=== PATIENT | female | born 1995 | race Two or more races ===

== ENCOUNTER 2017-01-06 10:04 | Emergency (ER) | payer MEDICAID ==
[~2017-01-06] VITALS: Ht 147.3 cm; Wt 71.2 kg
[~2017-01-06 10:04] MED LIST: DOCU-30 PO; HYDR1TAB12 PO; HYDR200T PO; IBUP-1222 PO; NONE PER PT; NORG1TAB6 PO; OXYC-302 PO; PREN1TAB52 PO
[2017-01-06] MEDS ORDERED: SODIUM CHLORIDE FLUSH 10ML SYR IVF ONE (11:00)
[2017-01-06] MEDS ORDERED: SODIUM CHLORIDE 0.9% 1,000ML IVBOLUS ONE (11:00)
[2017-01-06] MEDS ORDERED: ONDANSETRON 2MG/ML, 2ML IVPush ONE (11:00)
[2017-01-06] MEDS ORDERED: ONDANSETRON 2MG/ML, 2ML ONE (11:18)
[2017-01-06] MEDS ORDERED: PHENAZOPYRIDINE 200 MG TABLET ONE (11:18)
[2017-01-06] MEDS: PHENAZOPYRIDINE 200 MG TABLET PO ONE ×2 (11:31→13:25)
[2017-01-06 11:37] LABS: HEMOGLOBIN 13.7 g/dL (11.7-16.4)
[2017-01-06] MEDS ORDERED: CEFD300C2 PO (11:37)
[2017-01-06] MEDS ORDERED: MORPHINE SULFATE 4 MG/ML, 1ML ONE ×2 (11:40→12:46)
[2017-01-06 11:46] LABS: BLOOD UREA NITROGEN 11 mg/dL (7-18)
[2017-01-06] MEDS ORDERED: MORPHINE SULFATE 4 MG/ML, 1ML IVPush PRN (12:00)
[2017-01-06 12:05] LABS: PATH.CAST-FLAG NOT PRESENT; SPERM-FLAG NOT PRESENT; SRC-FLAG NOT PRESENT; XTAL-FLAG NOT PRESENT; YLC-FLAG NOT PRESENT
[2017-01-06] MEDS ORDERED: OMNIPAQUE 350 MG/ML, 100ML BOTTLE ONE (12:25)
[2017-01-06] MEDS ORDERED: CEFTRIAXONE PMX 1GM/50ML 50 ML IV ONE (13:00)
[2017-01-06] MEDS ORDERED: SULFAMETH./TRIMETHOPRIM DS 800MG/160MG TABLET ONE (13:03)
[2017-01-06 13:27] VITALS: BP 100/65
[2017-01-06] MEDS ORDERED: SULFAMETH./TRIMETHOPRIM DS 800MG/160MG TABLET PO ONE (13:30)
== END 2017-01-06 13:50 | disposition home or self-care (01) ==
LOC: ED 13:06
DX: N30.90 Cystitis, unspecified without hematuria (principal); L93.0 Discoid lupus erythematosus; F17.200 Nicotine dependence, unspecified, uncomplicated
CPT/HCPCS: 36415; 74177; 80048; 81001; 82040; 84703; 85025; 87086; 96361; 96374; 96375; 99285; J2405; J7030; Q9967; 87077

== ENCOUNTER 2017-02-11 17:34 | Emergency (ER) | payer MEDICAID ==
[~2017-02-11] VITALS: Ht 177.8 cm; Wt 70.5 kg
[~2017-02-11 17:34] MED LIST changes: +CEFD300C2 PO
[2017-02-11 17:45] VITALS: BP 115/74
[2017-02-11] MEDS ORDERED: HYDROmorphone 1 MG/ML, 1ML IVPush PRN (18:00)
[2017-02-11] MEDS ORDERED: SODIUM CHLORIDE FLUSH 10ML SYR IVF ONE (18:00)
[2017-02-11] MEDS ORDERED: SODIUM CHLORIDE 0.9% 1,000ML IV ONE (18:00)
[2017-02-11] MEDS ORDERED: ONDANSETRON 2MG/ML, 2ML IVPush ONE (18:00)
[2017-02-11 18:28] LABS: ASPARTATE AMINO TRANSFERASE 26 U/L (15-37); BLOOD UREA NITROGEN 12 mg/dL (7-18)
[2017-02-11] MEDS ORDERED: KETOROLAC 30 MG/1 ML IVPush ONE (18:30)
[2017-02-11] MEDS ORDERED: ONDANSETRON 2MG/ML, 2ML ONE (18:44)
[2017-02-11] MEDS ORDERED: KETOROLAC 30 MG/1 ML ONE (18:44)
[2017-02-11 19:04] LABS: PATH.CAST-FLAG NOT PRESENT; SPERM-FLAG NOT PRESENT; SRC-FLAG NOT PRESENT; XTAL-FLAG NOT PRESENT; YLC-FLAG NOT PRESENT
[2017-02-11] MEDS ORDERED: CEFTRIAXONE PMX 1GM/50ML 50 ML ONE (19:42)
[2017-02-11] MEDS ORDERED: CEFTRIAXONE 1,000 MG IM ONE (20:00)
== END 2017-02-11 20:54 | disposition home or self-care (01) ==
LOC: ED 20:48
DX: N30.00 Acute cystitis without hematuria (principal); N12 Tubulo-interstitial nephritis, not specified as acute or chronic; F17.200 Nicotine dependence, unspecified, uncomplicated; Z98.890 Other specified postprocedural states
CPT/HCPCS: 36415; 80053; 81001; 84703; 85025; 87086; 96361; 96372; 96374; 96375; 99285; J0696; J1885; J2405; J7030

== ENCOUNTER 2017-02-19 12:04 | Emergency (ER) | payer MEDICAID ==
[~2017-02-19] VITALS: Ht 149.9 cm; Wt 72.0 kg
[~2017-02-19 12:04] MED LIST changes: -CEFD300C2 PO; +CEFD300C37 PO
[2017-02-19] MEDS ORDERED: SODIUM CHLORIDE FLUSH 10ML SYR IVF ONE (13:00)
[2017-02-19] MEDS ORDERED: MORPHINE SULFATE 4 MG/ML, 1ML IVPush PRN (13:00)
[2017-02-19] MEDS ORDERED: ONDANSETRON 2MG/ML, 2ML IVPush ONE (13:00)
[2017-02-19] MEDS ORDERED: SODIUM CHLORIDE 0.9% 1,000ML IVBOLUS ONE (13:00)
[2017-02-19] MEDS ORDERED: MORPHINE SULFATE 4 MG/ML, 1ML ONE (13:10)
[2017-02-19] MEDS ORDERED: ONDANSETRON 2MG/ML, 2ML ONE (13:10)
[2017-02-19 13:26] LABS: BLOOD UREA NITROGEN 15 mg/dL (7-18)
[2017-02-19 14:00] VITALS: BP 104/72
== END 2017-02-19 14:40 | disposition home or self-care (01) ==
LOC: ED 13:52
DX: N93.8 Other specified abnormal uterine and vaginal bleeding (principal); M32.9 Systemic lupus erythematosus, unspecified; R10.31 Right lower quadrant pain; R10.32 Left lower quadrant pain
CPT/HCPCS: 36415; 76830; 80048; 81001; 82040; 84703; 85025; 87086; 96361; 96374; 96375; 99285; J2405; J7030

== ENCOUNTER 2017-02-23 01:00 | Emergency (ER) | payer MEDICAID ==
[~2017-02-23] VITALS: Ht 149.9 cm; Wt 71.7 kg
[2017-02-23 02:28] LABS: ASPARTATE AMINO TRANSFERASE 24 U/L (15-37); BLOOD UREA NITROGEN 12 mg/dL (7-18)
[2017-02-23] MEDS ORDERED: KETOROLAC 30 MG/1 ML IM ONE (03:30)
[2017-02-23] MEDS ORDERED: KETOROLAC 30 MG/1 ML ONE (03:34)
[2017-02-23 03:44] LABS: HCG UR OBC PASS
[2017-02-23 04:31] VITALS: BP 114/75
== END 2017-02-23 05:00 | disposition home or self-care (01) ==
LOC: ED 03:59
DX: R10.32 Left lower quadrant pain (principal); R10.31 Right lower quadrant pain; R10.2 Pelvic and perineal pain
CPT/HCPCS: 36415; 76830; 80053; 81001; 81025; 83690; 84702; 85025; 96372; 99285; J1885

== ENCOUNTER 2017-05-21 12:04 | Emergency (ER) | payer MEDICAID ==
[~2017-05-21] VITALS: Ht 147.3 cm; Wt 70.9 kg
[2017-05-21] MEDS ORDERED: SODIUM CHLORIDE FLUSH 10ML SYR IVF ONE (13:00)
[2017-05-21] MEDS ORDERED: KETOROLAC 30 MG/1 ML IVPush ONE (13:00)
[2017-05-21] MEDS ORDERED: SODIUM CHLORIDE 0.9% 1,000ML IVBOLUS ONE (13:00)
[2017-05-21] MEDS ORDERED: ONDANSETRON 2MG/ML, 2ML IVPush ONE (13:00)
[2017-05-21 13:02] LABS: ASPARTATE AMINO TRANSFERASE 55 U/L (15-37); BLOOD UREA NITROGEN 8 mg/dL (7-18)
[2017-05-21] MEDS ORDERED: ONDANSETRON 2MG/ML, 2ML ONE (13:05)
[2017-05-21] MEDS ORDERED: KETOROLAC 30 MG/1 ML ONE (13:05)
[2017-05-21 14:34] LABS: HCG UR OBC PASS
[2017-05-21 14:51] VITALS: BP 121/63
== END 2017-05-21 14:53 | disposition home or self-care (01) ==
LOC: ED 12:52
DX: R10.11 Right upper quadrant pain (principal); R11.0 Nausea
CPT/HCPCS: 36415; 74020; 76770; 80053; 81001; 81025; 83690; 85025; 87077; 87086; 96361; 96374; 96375; 99285; J1885; J2405; J7030; 87186

== ENCOUNTER 2017-05-27 21:28 | Emergency (ER) | payer MEDICAID ==
[~2017-05-27] VITALS: Ht 149.9 cm; Wt 70.0 kg
[2017-05-27 21:38] VITALS: BP 116/77
[2017-05-27 22:13] LABS: HEMOGLOBIN 13.2 g/dL (11.7-16.4); WHITE BLOOD COUNT 11.6 x10^3/uL (3.4-10)
[2017-05-27 22:24] LABS: ASPARTATE AMINO TRANSFERASE 31 U/L (15-37); BLOOD UREA NITROGEN 12 mg/dL (7-18)
== END 2017-05-27 22:51 | disposition home or self-care (01) ==
LOC: ED 22:45
DX: N10 Acute pyelonephritis (principal); N83.209 Unspecified ovarian cyst, unspecified side; M32.9 Systemic lupus erythematosus, unspecified
CPT/HCPCS: 36415; 80053; 81001; 84703; 85025; 87086; 99284

== ENCOUNTER → 2020-08-17 | Outpatient (CLI) | payer MEDICAID ==
[~2020-08-17] MED LIST changes: +DOCU-131 PO; -DOCU-30 PO; -HYDR1TAB12 PO; +HYDR1TAB13 PO; -HYDR200T PO; +HYDR200T72 PO
[2020-08-17 14:43] LABS: BASOPHILS % (AUTO) 1 % (0-1); EOSINOPHILS % (AUTO) 3 % (1-7); LYMPHOCYTES % (AUTO) 43 % (22-44); MEAN CORPUSCULAR HEMOGLOBIN 29.3 pg (27.0-34.8); MEAN CORPUSCULAR HGB CONC 33.1 g/dL (32.4-35.8); MEAN PLATELET VOLUME 8.8 fL (7.4-10.4); MONOCYTES % (AUTO) 7 % (2-9); NEUTROPHILS % (AUTO) 47 % (42-75); PLATELET COUNT 330 x10^3/uL (130-400); RED BLOOD COUNT 4.59 x10^6/uL (3.82-5.3); RED CELL DISTRIBUTION WIDTH 13.2 % (9.6-15.2)
[2020-08-17 14:48] LABS: MD NO
== END | disposition home or self-care (01) ==
LOC: STAR 13:31
PROVIDERS: ATTEND Obstetrics & Gynecology
DX: Z01.812 Encounter for preprocedural laboratory examination (principal); U07.1 COVID-19; N94.6 Dysmenorrhea, unspecified; N30.10 Interstitial cystitis (chronic) without hematuria
CPT/HCPCS: 36415; 84703; 85025; 87635

== ENCOUNTER 2021-05-15 18:54 | Emergency (ER) | payer MEDICAID ==
[~2021-05-15] VITALS: Ht 152.4 cm; Wt 87.3 kg
[~2021-05-15 18:54] MED LIST changes: -OXYC-302 PO; +OXYC1TAB14 PO
[2021-05-15 19:31] LABS: BASOPHILS % (AUTO) 1 % (0-1); EOSINOPHILS % (AUTO) 2 % (1-7); LYMPHOCYTES % (AUTO) 34 % (22-44); MEAN CORPUSCULAR HEMOGLOBIN 30.6 pg (27.0-34.8); MEAN CORPUSCULAR HGB CONC 34.5 g/dL (32.4-35.8); MEAN PLATELET VOLUME 9.2 fL (7.4-10.4); MONOCYTES % (AUTO) 5 % (2-9); NEUTROPHILS % (AUTO) 59 % (42-75); PLATELET COUNT 286 x10^3/uL (130-400); RED BLOOD COUNT 4.51 x10^6/uL (3.82-5.3); RED CELL DISTRIBUTION WIDTH 13.4 % (9.6-15.2)
[2021-05-15 19:43] LABS: ALBUMIN 3.3 g/dL (3.4-5.0); ANION GAP 5 mmol/L (5-15); CALCIUM 8.5 mg/dL (8.5-10.1); CHLORIDE 110 mmol/L (98-107)
--- NOTE | 2021-05-16 00:28 | NUR ---
textile knitter note: Pt to room from lobby.
--- NOTE | 2021-05-16 00:35 | NUR ---
PT PRESENTS TO ER FOR RLQ ABDOMINAL PAIN, STARTED 3 DAYS AGO, PT STATES THE PAIN RADIATES TO THE BACK, PAIN ASSOCIATED WITH NAUSEA BUT NO VOMITTING, PT STATES SHE GETS UTIS OFTEN BUT FEELS THIS TIME IS NOT A UTI, PAIN IS 10/10
[2021-05-16 00:54] LABS: MICROSCOPIC INDICATED
[2021-05-16] MEDS ORDERED: MORPHINE SULFATE 4 MG/ML, 1ML IVPush ONE ×2 (01:00→03:30)
[2021-05-16] MEDS ORDERED: ONDANSETRON 2MG/ML, 2ML IVPush ONE ×2 (01:00→03:30)
[2021-05-16] MEDS ORDERED: ONDANSETRON 2MG/ML, 2ML ONE ×2 (01:26→03:27)
[2021-05-16] MEDS ORDERED: MORPHINE SULFATE 4 MG/ML, 1ML ONE ×2 (01:27→03:27)
--- NOTE | 2021-05-16 01:39 | NUR ---
IV placed. medicated for pain and nausea. to CT scan.
--- NOTE | 2021-05-16 01:45 | NUR ---
back from CT scan. awaiting result.
[2021-05-16] MEDS ORDERED: OMNIPAQUE 350 MG/ML, 100ML BOTTLE ONE (01:56)
--- NOTE | 2021-05-16 02:38 | NUR ---
PT LAYING IN BED, A/OX4, ALL NEEDS IN REACH, CALL LIGHT IN REACH, NAD AT THIS TIME, MOTHER AT BEDSIDE
--- NOTE | 2021-05-16 03:33 | NUR ---
PT LAYING IN BED, A/OX3, ALL NEEDS IN REACH, CALL LIGHT IN REACH, NAD AT THIS TIME, PT WAS COMPLAINING OF PAIN, IV PAIN MEDS ADMINISTERED PER EMAR, MOTHER AT BEDSIDE
--- NOTE | 2021-05-16 05:02 | NUR ---
PT LAYING IN BED, A/OX3, ALL NEEDS IN REACH, CALL LIGHT IN REACH, NAD AT THIS TIME, VSS, PROVIDER AT BEDSIDE FOR PELVIC EXAM
[2021-05-16 05:32] LABS: CLUE CELLS NONE SEEN (NONE SEEN)
[2021-05-16 05:47] LABS: WET PREP WBCS FEW (FEW)
[2021-05-16 06:29] VITALS: BP 129/72
--- NOTE | 2021-05-16 06:29 | NUR ---
Assist RN: re-evaluation done. patient discharged with prescriptions and instruction. verbalized understanding.
== END 2021-05-16 06:33 | disposition home or self-care (01) ==
LOC: ED 18:59
DX: N83.291 Other ovarian cyst, right side (principal); R10.32 Left lower quadrant pain; R93.5 Abnormal findings on diagnostic imaging of other abdominal regions, including retroperitoneum
CPT/HCPCS: 36415; 74177; 76830; 80048; 81001; 82040; 84703; 85025; 87086; 87210; 87491; 87591; 87808; 96374; 96375; 96376; 99285; J2270; J2405; Q9967

== ENCOUNTER 2021-06-18 22:18 | Emergency (ER) | payer MEDICAID ==
[~2021-06-18] VITALS: Ht 152.4 cm; Wt 98.5 kg
[~2021-06-18 22:18] MED LIST changes: +OXYC1TAB12 PO; -OXYC1TAB14 PO
[2021-06-18 23:18] LABS: BASOPHILS % (AUTO) 1 % (0-1); EOSINOPHILS % (AUTO) 3 % (1-7); LYMPHOCYTES % (AUTO) 34 % (22-44); MEAN CORPUSCULAR HEMOGLOBIN 30.4 pg (27.0-34.8); MEAN CORPUSCULAR HGB CONC 34.3 g/dL (32.4-35.8); MEAN PLATELET VOLUME 8.8 fL (7.4-10.4); MONOCYTES % (AUTO) 7 % (2-9); NEUTROPHILS % (AUTO) 56 % (42-75); PLATELET COUNT 314 x10^3/uL (130-400); RED BLOOD COUNT 4.24 x10^6/uL (3.82-5.3); RED CELL DISTRIBUTION WIDTH 13.4 % (9.6-15.2)
[2021-06-18 23:30] LABS: ALBUMIN 3.2 g/dL (3.4-5.0); ANION GAP 5 mmol/L (5-15); CALCIUM 8.7 mg/dL (8.5-10.1); CHLORIDE 110 mmol/L (98-107)
[2021-06-18 23:36] LABS: ALANINE AMINOTRANSFERASE 85 U/L (12-78); ALKALINE PHOSPHATASE 91 U/L (45-117); BILIRUBIN,TOTAL 0.3 mg/dL (0.2-1.0); TOTAL PROTEIN 7.6 g/dL (6.4-8.2)
--- NOTE | 2021-06-19 00:32 | NUR ---
PT C/O R SIDED ABD/FLANK PAIN AND PAINFUL URINATION. UA COLLECTED AND SENT TO LAB AT THIS TIME.
[2021-06-19 00:47] LABS: MICROSCOPIC AUTO
[2021-06-19] MEDS ORDERED: ACETAMINOPHEN 500 MG TABLET ONE (00:55)
[2021-06-19] MEDS ORDERED: ACETAMINOPHEN 500 MG TABLET PO ONE (01:00)
--- NOTE | 2021-06-19 02:17 | NUR ---
Note jose rafael in [facility] - 06/19/21 at 0226 by MARCELINA attempt x2 to call US on status for this pt, no answer.
--- NOTE | 2021-06-19 02:26 | NUR ---
US completed at this time
--- NOTE | 2021-06-19 02:50 | NUR ---
report recieved from melvin toledo
[2021-06-19 02:57] VITALS: BP 115/79
[2021-06-19] MEDS ORDERED: ACETAMINOPHEN 325 MG TABLET ONE (03:00)
[2021-06-19] MEDS ORDERED: ACETAMINOPHEN 325 MG TABLET PO ONE (03:30)
== END 2021-06-19 04:07 | disposition home or self-care (01) ==
LOC: ED 06-19 00:35
DX: O23.41 Unspecified infection of urinary tract in pregnancy, first trimester (principal); Z3A.01 Less than 8 weeks gestation of pregnancy
CPT/HCPCS: 36415; 76801; 80053; 81001; 84702; 84703; 85025; 86901; 87086; 99284